=== PATIENT | male | born 1945 | race Caucasian/White ===

== ENCOUNTER 2019-04-07 10:54 | Emergency (ER) | payer MEDICARE ==
--- NOTE | 2019-04-07 12:10 | XRay Report ---
CHEST XRAY, 2 VIEWS: History: Chest pain. Findings: No recent comparison. The lungs are hyperinflated with prominent interstitial markings at the lung bases. There is linear airspace opacity in the lingular region which is most consistent with scarring or segmental atelectasis. No convincing pneumonia. No pleural effusion or pneumothorax. Heart size and pulmonary vessels are within normal limits. The thoracic cage is grossly intact. IMPRESSION: Changes consistent with COPD. No acute cardiopulmonary process.
[2019-04-07 12:57] LABS: Basophils % (Auto) 0.7 % (0.0-1.8); Eosinophils # (Auto) 0.3 K/mm3 (0.0-0.4); Eosinophils % (Auto) 5.3 % (0.0-4.3); Hematocrit 36.6 % (35.5-45.6); Hemoglobin 12.3 gm/dl (11.8-15.2); Lymphocytes # (Auto) 1.6 K/mm3 (1.2-5.4); Lymphocytes % (Auto) 27.1 % (13.4-35.0); Mean Corpuscular HGB Conc 34 % (32-34); Mean Corpuscular Volume 95 fl (84-94); Monocytes # (Auto) 0.4 K/mm3 (0.0-0.8); Monocytes % (Auto) 7.5 % (0.0-7.3); Platelet Count 361 K/mm3 (140-440); Red Blood Count 3.85 M/mm3 (3.65-5.03)
[2019-04-07 13:06] LABS: INR 0.91 (0.87-1.13)
[2019-04-07 13:07] LABS: Partial Thromboplastin Time 27.1 Sec. (24.2-36.6)
[2019-04-07 13:09] LABS: Alanine Aminotransferase 12 units/L (7-56); Albumin 4.1 g/dL (3.9-5); BUN/Creatinine Ratio 16; Blood Urea Nitrogen 27 mg/dL (9-20); Calcium 8.9 mg/dL (8.4-10.2); Hemolysis Index 10
[2019-04-07] MEDS ORDERED: ZOFRAN IV ONE (14:06)
[2019-04-07] MEDS ORDERED: NACL 0.9% 1000 ML 1,000 ML IV ONE ×2 (14:06→15:32)
--- NOTE | 2019-04-07 14:06 | Emergency Department Report ---
ED Chest Pain HPI - General Chief Complaint: Chest Pain Stated Complaint: FEVER/WEIGHT LOSS Time Seen by Provider: 04/07/19 13:58 Source: patient Mode of arrival: Wheelchair Limitations: Language Barrier - History of Present Illness Initial Comments: Patient is 74 years old male with history of hypertension and CVA. Patient presented to the ER complaining of left-sided chest pain started yesterday associated with generalized weakness. Patient describes his pain as heaviness with no radiation. Patient denied any fever or chills. MD Complaint: chest pain -: Last night Onset: during rest Pain Location: left chest Pain Radiation: none Severity: moderate Quality: heaviness - Related Data Allergies Allergy/AdvReac Type Severity Reaction Status Date / Time No Known Allergies Allergy Verified 04/07/19 11:21 Heart Score - HEART Score History: Moderately suspicious EKG: Non-specific Age: > 65 Risk factors: 1-2 risk factors Troponin: < normal limit HEART Score: 5 - Critical Actions Critical Actions: 4-6 pts:12-16.6% risk of adverse cardiac event. Should be admitted ED Review of Systems ROS: Stated complaint: FEVER/WEIGHT LOSS Other details as noted in HPI Comment: All other systems reviewed and negative Constitutional: denies: chills, fever Respiratory: cough. denies: orthopnea, shortness of breath, SOB with exertion, SOB at rest, wheezing Cardiovascular: denies: chest pain, palpitations Gastrointestinal: denies: abdominal pain, nausea, vomiting, diarrhea, constipation, hematemesis, melena, hematochezia Musculoskeletal: denies: back pain Neurological: weakness (generalized). denies: headache ED Past Medical Hx - Past Medical History Previous Medical History?: Yes Hx Hypertension: Yes Hx CVA: Yes Hx Asthma: Yes - Surgical History Past Surgical History?: No - Social History Smoking Status: Former Smoker Substance Use Type: None ED Physical Exam - General Limitations: Language Barrier General appearance: alert, in no apparent distress - Head Head exam: Present: atraumatic, normocephalic, normal inspection - Eye Eye exam: Present: normal appearance, PERRL - ENT ENT exam: Present: normal exam, mucous membranes dry - Neck Neck exam: Present: normal inspection, full ROM. Absent: tenderness, meningismus, lymphadenopathy, thyromegaly - Respiratory Respiratory exam: Present: normal lung sounds bilaterally - Cardiovascular Cardiovascular Exam: Present: regular rate, normal rhythm, normal heart sounds - GI/Abdominal GI/Abdominal exam: Present: soft, normal bowel sounds. Absent: distended, tenderness, guarding, rebound, rigid, organomegaly, mass, bruit, pulsatile mass, hernia - Extremities Exam Extremities exam: Present: normal inspection, full ROM, normal capillary refill. Absent: pedal edema, calf tenderness - Back Exam Back exam: Present: normal inspection, full ROM. Absent: tenderness, CVA tenderness (R), CVA tenderness (L), muscle spasm, paraspinal tenderness, vertebral tenderness - Neurological Exam Neurological exam: Present: alert, oriented X3, CN II-XII intact - Skin Skin exam: Present: warm, dry, intact, normal color ED Course Vital Signs 04/07/19 04/07/19 04/07/19 10:59 14:00 17:08 Temperature 98.2 F Pulse Rate 92 H 79 91 H Respiratory 16 18 18 Rate Blood Pressure 110/58 Blood Pressure 156/76 156/73 [Left] O2 Sat by Pulse 96 99 Oximetry ED Medical Decision Making - Lab Data Result diagrams: 04/07/19 12:29 04/07/19 12:29 - EKG Data -: EKG Interpreted by Wy EKG shows normal: sinus rhythm Rate: normal - EKG Data Interpretation: no acute changes - Radiology Data Radiology results: report reviewed Chest x-ray consistent with COPD. VQ scan is low probability. CT abdomen and pelvis showed no acute intra-abdominal process. - Medical Decision Making Patient is 74 years old male with history of hypertension and CVA. Patient presented to the ER complaining of left-sided chest pain started yesterday associated with generalized weakness. Patient describes his pain as heaviness with no radiation. Patient denied any fever or chills. The patient stated that he is feeling much better and he insisted that he wanted to go home. Patient EKG did not show any ST elevation or depression. Chest x- ray is unremarkable. 2 sets of troponin is negative. VQ scan is negative. CT abdomen and pelvis is negative for acute intra-abdominal process. Patient advised to follow-up with his primary care physician in the next 2-3 days and to return to the ER if symptoms are not improved. Critical care attestation.: If time is entered above; I have spent that time in minutes in the direct care of this critically ill patient, excluding procedure time. ED Disposition Clinical Impression: Chest pain, Abdominal pain, Generalized weakness Disposition: DC-01 TO HOME OR SELFCARE Is pt being admited?: No Condition: Stable Instructions: Chest Pain (ED) Referrals: RENNY DANIEL MD [Primary Care Provider] - 3-5 Days
[2019-04-07 17:08] VITALS: BP 156/73
--- NOTE | 2019-04-07 17:21 | Cat Scan Report ---
PROCEDURE: CT ABDOMEN PELVIS WO CON TECHNIQUE: Computerized axial tomography of the abdomen and pelvis was performed without intravenous contrast. This study is performed without intravascular contrast material and its sensitivity for ab dominal and pelvic pathology, including neoplasms, inflammation, abscess, free fluid, thrombosis, art erial dissection and infarction, is reduced compared with a contrast enhanced study. CT DOSE LENGTH PRODUCT: 457.01 mGycm HISTORY: ABDOMINAL PAIN COMPARISONS: None . FINDINGS: Visualized lower thorax: Extensive fibrotic changes and bronchiectasis in each lung base involving th e lingula, left lower lobe, right lower lobe, and right middle lobe. Liver: Normal size and attenuation. Spleen: Normal size and attenuation. Gallbladder and biliary system: Gallbladder has been surgically removed. Pancreas: Normal. Adrenals: Normal. Kidneys: Normal. GI tract: Normal . Lymph nodes and mesentery: Normal. Vasculature: Atherosclerotic calcification of aorta is noted.. Bladder: Normal. Reproductive organs: Mild prostate enlargement is noted. Peritoneum: No free fluid. Musculoskeletal structures: No significant abnormality. Other: None. IMPRESSION: 1. No acute intra-abdominal process noted 2. Mild prostate enlargement 3. Extensive fibrotic changes and bronchiectasis in the lower This document is electronically signed by Fadia Deng MD., April 07 2019 05:19:29 PM ET
--- NOTE | 2019-04-07 17:34 | Nuclear Medicine Report ---
PROCEDURE: NM LUNG SCAN PERF/VENT TECHNIQUE: Perfusion imaging of the lungs was performed in multiple planar projections. Ventilation images were obtained in the posterior projection during inhalation, equilibrium, and washout phases. Correlation with a chest x-ray dated 04/07/2019 was performed. DOSE: 25.6 millicuries Xe-133 gas; 3.96 millicuries 99m Tc MAA given IV. Injection site: RIGHT antecu bital fossa. HISTORY: SOB, ELEVATED D-DIMER COMPARISONS: None . FINDINGS: No unmatched segmental or subsegmental perfusion defects identified to suggest pulmonary embolism. There are multiple perfusion defects identified in the left lower lobe, left upper lobe apex and ling nelida, right lower lobe superior segment, and right upper lobe anterior basilar segment. These all have significant matched gas trapping on ventilation with extensive fibrotic changes in these areas seen on chest x-ray. The ventilation study demonstrates significant gas trapping throughout the left lung, mostly in the a pex and lung base and in the right mid and lower lung zone. IMPRESSION: Low probability V/Q scan. Extensive perfusion defects match with areas of gas trapping on ventilation . These findings are probably associated with underlying COPD and extensive fibrosis seen on chest x- ray. This document is electronically signed by Fadia Deng MD., April 07 2019 05:33:17 PM ET
== END 2019-04-07 18:30 | disposition home or self-care (01) ==
LOC: ED 10:54
DX: R07.89 Other chest pain (principal); R53.1 Weakness; R10.9 Unspecified abdominal pain; I10 Essential (primary) hypertension; J45.909 Unspecified asthma, uncomplicated; Z86.73 Personal history of transient ischemic attack (TIA), and cerebral infarction without residual deficits; Z87.891 Personal history of nicotine dependence
CPT/HCPCS: 36415; 71046; 74176; 78582; 80053; 83690; 83735; 83880; 84100; 84484; 85025; 85379; 85610; 85730; 93005; 93010; 96374; 99284; A9540; A9558; J2405; J7030; 96361